=== PATIENT | male | born 1995 | race Caucasian/White ===

== ENCOUNTER 2020-08-08 03:35 | Emergency (ER) | payer SELFPAY ==
[~2020-08-08] VITALS: Ht 180.3 cm; Wt 99.8 kg
[2020-08-08 03:44] VITALS: BP 121/74
--- NOTE | 2020-08-08 03:50 | NUR ---
PT. AMBULATED TO BED 12 FROM TRIAGE
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
[2020-08-08] MEDS ORDERED: HYDROcodone/APAP 5/325 MG 1 TAB TAB PO ONE (04:05)
--- NOTE | 2020-08-08 05:12 | NUR ---
PT RETURNED FROM CT VIA W.C.
[2020-08-08] MEDS ORDERED: CYCL-711 PO (06:24)
[2020-08-08] MEDS ORDERED: KETO10TA2 PO (06:24)
[2020-08-08 06:29] VITALS: BP 121/74
--- NOTE | 2020-08-08 06:29 | NUR ---
Patient discharged with v/s stable. Written and verbal after care instructions given and explained. Patient alert, oriented and verbalized understanding of instructions. Ambulatory with steady gait. All questions addressed prior to discharge. ID band removed. Patient advised to follow up with PMD. Rx of FLEXIRIL AND KETOROLAC TROMETHAMINE given. Patient educated on indication of medication including possible reaction and side effects. Opportunity to ask questions provided and answered.
== END 2020-08-08 06:29 | disposition home or self-care (01) ==
LOC: MED 03:35
DX: M54.5 Low back pain (principal); Z79.899 Other long term (current) drug therapy; V89.2XXA Person injured in unspecified motor-vehicle accident, traffic, initial encounter; Y93.89 Activity, other specified; Y92.89 Other specified places as the place of occurrence of the external cause; Y99.8 Other external cause status
CPT/HCPCS: 72128; 72131; 99285

== ENCOUNTER 2022-02-21 08:42 | Emergency (ER) | payer SELFPAY ==
[~2022-02-21] VITALS: Ht 180.3 cm; Wt 95.3 kg
[~2022-02-21 08:42] MED LIST: CYCL-711 PO; KETO10TA2 PO
--- NOTE | 2022-02-21 08:48 | NUR ---
CALLED TO TRIAGE NO RESPONSE
[2022-02-21 08:50] VITALS: BP 121/72
--- NOTE | 2022-02-21 09:08 | NUR ---
27 Y/O MALE BIB C/O NAUSEA, DIARRHEA, EPIGASTRIC PAIN X1 HOUR, PER PT HE VOMITED 1X EPISODE 'A LITTLE BIT", IS SICK WITH SAME S/S. DENIES ANY BLOOD IN STOOL OR VOMITUS NKA PMH: DENIES
[2022-02-21] MEDS ORDERED: ALUMINUM HYD/MAG/SIMETHICONE 30 ML UDC PO ONE (09:10)
[2022-02-21] MEDS ORDERED: FAMOTIDINE 20 MG TAB PO ONE (09:10)
[2022-02-21] MEDS ORDERED: LOPERAMIDE 2 MG CAP PO ONE (09:10)
[2022-02-21] MEDS ORDERED: ONDANSETRON 4 MG ODT PO ONE (09:10)
--- NOTE | 2022-02-21 09:17 | NUR ---
pt return to lobby
[2022-02-21] MEDS ORDERED: ONDA-188 SL (09:37)
[2022-02-21] MEDS ORDERED: FAMO-90 PO (09:37)
[2022-02-21] MEDS ORDERED: IMO2 PO (09:37)
--- NOTE | 2022-02-21 09:55 | NUR ---
Patient discharged with v/s stable. Written and verbal after care instructions FOR DIARRHEA AND VOMITING given and explained. Patient alert, oriented and verbalized understanding of instructions. Ambulatory with steady gait. All questions addressed prior to discharge. ID band removed. Patient advised to follow up with PMD. Rx of PEPCID, LOPERAMIDE AND ZOFRAN given. Opportunity to ask questions provided and answered.
--- NOTE | 2022-02-21 09:58 | NUR ---
Note jerourmila in EDM - 02/21/22 at 0958 by PHSEP Patient discharged with v/s stable. Written and verbal after care instructions FOR DIARRHEA AND VOMITING given and explained. Patient alert, oriented and verbalized understanding of instructions. Ambulatory with steady gait. All questions addressed prior to discharge. ID band removed. Patient advised to follow up with PMD. Rx of PEPCID, LOPERAMIDE AND ZOFRAN given. Opportunity to ask questions provided and answered.
== END 2022-02-21 09:55 | disposition home or self-care (01) ==
LOC: MED 08:42
DX: R11.2 Nausea with vomiting, unspecified (principal); R19.7 Diarrhea, unspecified
CPT/HCPCS: 99284; Q0162